=== PATIENT | male | born 1995 | race African-American/Black ===

== ENCOUNTER 2016-07-21 05:05 | Emergency (ER) | payer OTHER ==
[~2016-07-21] VITALS: Ht 182.9 cm; Wt 142.3 kg
[2016-07-21 05:12] VITALS: BP 140/74; PULSE 82; TEMP 98.1
[2016-07-21] MEDS ORDERED: ZITHROMAX Z PA250 MG PO (06:00)
== END 2016-07-21 06:49 | disposition home or self-care (01) ==
LOC: COL.ER 05:05
DX: J03.90 Acute tonsillitis, unspecified (principal)

== ENCOUNTER 2017-12-17 22:03 | Emergency (ER) | payer OTHER ==
[~2017-12-17] VITALS: Ht 182.9 cm; Wt 150.0 kg
[~2017-12-17 22:03] MED LIST: ZITHROMAX Z PA250 MG PO
[2017-12-17 22:09] VITALS: BP 143/77; TEMP 98
[2017-12-17] MEDS ORDERED: NORCO 325 MG-51 TAB PO (22:58)
[2017-12-17] MEDS ORDERED: IBU800 M1 PO (22:58)
[2017-12-17 23:36] LABS: BASO % 0.6 % (0.0-2.0); EOS # 0.1 (0.0-0.7); GRAN # 3.9 (1.4-6.5); GRAN % 56.2 % (42.2-75.2); HEMATOCRIT 40.5 % (42.0-52.0); HEMOGLOBIN 13.6 g/dl (13.5-18.0); LYMPH # 2.4 (1.2-3.4); LYMPH % 33.8 % (20.0-51.0); MEAN CELL VOLUME 84 fl (80.0-100.0); MEAN CORPUSCULAR HEMOGLOBIN 28 pg (27.0-31.0); MEAN CORPUSCULAR HGB CONC 34 g/dl (33.0-37.0); MEAN PLATELET VOLUME 8.9 fl (7.4-10.4); MONO # 0.5 (0.1-0.6); MONO % 6.8 % (1.7-9.3); PLATELET COUNT 311 K/mm3 (130-400); RED BLOOD COUNT 4.84 M/mm3 (4.20-5.60); REDCELL DISTRIBUTION WIDTH-CV 12.4 % (11.5-14.5)
[2017-12-17 23:55] LABS: BILIRUBIN,TOTAL 0.2 mg/dL (0.0-1.0); CALCIUM 9.5 mg/dL (8.4-10.2); CREATININE, serum 0.96 mg/dL (0.66-1.25); POTASSIUM 4.1 mmol/L (3.4-5.0); TOTAL PROTEIN 7.4 gm/dL (6.4-8.2)
[2017-12-18 00:21] VITALS: PULSE 80
== END 2017-12-18 00:22 | disposition home or self-care (01) ==
LOC: COL.ER 22:03
PROVIDERS: Physician Assistant
DX: G25.3 Myoclonus (principal)